=== PATIENT | female | born 1960 | race Caucasian/White ===

== ENCOUNTER 2019-08-03 15:24 | Emergency (ER) | payer MEDICAID ==
[~2019-08-03] VITALS: Ht 157.5 cm; Wt 90.9 kg
[~2019-08-03 15:24] MED LIST: AMLO10TA PO; ASPI81TA52 PO; ATOR40TA71 PO; BUSP10TA10 PO; DEXT15DR7 EACHEYE; DIVA500T9 PO; GABA-532 PO; LISI40TA4 PO; LURA40TA3 PO; MECL-111 PO; METO25TA6 PO; MONT10TA24 PO; NITR0.4T48 SL; ONDA4TAB12 PO; OXYC10TA47 PO; PANT-47 PO; SERT50TA PO; TEMA15CA5 PO; WARF10TA50 PO
[2019-08-03 16:28] VITALS: BP 134/67
[2019-08-03] MEDS ORDERED: dexamethasone sod phosphate 10mg/ml inj IM STA (16:32)
[2019-08-03] MEDS ORDERED: NAPR-56 PO (16:43)
[2019-08-03] MEDS ORDERED: TRAM50TA2 PO (16:43)
== END 2019-08-03 17:07 | disposition home or self-care (01) ==
LOC: ER 15:25
DX: M54.16 Radiculopathy, lumbar region (principal); I11.0 Hypertensive heart disease with heart failure; I50.9 Heart failure, unspecified; G89.29 Other chronic pain; F31.9 Bipolar disorder, unspecified; Z86.73 Personal history of transient ischemic attack (TIA), and cerebral infarction without residual deficits; Z90.49 Acquired absence of other specified parts of digestive tract; Z90.710 Acquired absence of both cervix and uterus; Z98.890 Other specified postprocedural states; Z88.8 Allergy status to other drugs, medicaments and biological substances; Z88.6 Allergy status to analgesic agent; Z88.1 Allergy status to other antibiotic agents; Z79.82 Long term (current) use of aspirin; Z79.01 Long term (current) use of anticoagulants; Z79.899 Other long term (current) drug therapy
CPT/HCPCS: 96372; 99284; J1100

== ENCOUNTER 2020-09-27 07:56 | Day surgery (SDC) | payer MEDICAID ==
[2020-09-21 12:13] LABS: BASOPHILS # (AUTO) 0.1 X10'3 (0-0.2); EOSINOPHILS # (AUTO) 0.2 X10'3 (0-0.9); EOSINOPHILS % (AUTO) 1.8 % (0-6); LYMPHOCYTES # (AUTO) 3.3 X10'3 (1.1-4.8); LYMPHOCYTES % (AUTO) 38.8 % (21-51); MEAN CORPUSCULAR HEMOGLOBIN 28.6 PG (27.0-31.0); MEAN CORPUSCULAR HGB CONC 33.3 g/dL (33.0-36.5); MEAN CORPUSCULAR VOLUME 85.8 FL (78-98); MEAN PLATELET VOLUME 9.2 FL (7.4-10.4); MONOCYTES # (AUTO) 0.7 X10'3 (0-0.9); MONOCYTES % (AUTO) 7.9 % (2-12); NEUTROPHILS # (AUTO) 4.2 X10'3 (1.8-7.7); NEUTROPHILS % (AUTO) 50.5 % (42-75); PRE OP HEMATOCRIT 40.7 % (35.0-45.0); PRE OP HEMOGLOBIN 13.6 g/dL (12.0-16.0); PRE OP PLATELET COUNT 257 X10'3 (140-440); RED BLOOD COUNT 4.75 X10'6 (4.20-5.60); RED CELL DISTRIBUTION WIDTH 14.5 % (11.5-14.5)
[2020-09-21 12:34] LABS: ALBUMIN 3.6 G/DL (3.4-5.0); ALBUMIN/GLOBULIN RATIO 0.9 (1.1-1.5); ALKALINE PHOSPHATASE 130 IU/L (46-116); BLOOD UREA NITROGEN 14 MG/DL (7-18); BUN/CREATININE RATIO 15.2 (6.6-38.0); CALCIUM 9.4 MG/DL (8.5-10.1); CHLORIDE 106 MMOL/L (99-107); CREATININE 0.92 MG/DL (0.40-0.90); PRE OP ALT 35 U/L (30-65); PRE OP ANION GAP 8 (8-16); PRE OP AST 13 U/L (10-37); PRE OP BILIRUB, TOTAL 0.4 MG/DL (0.0-1.0); PRE OP GLUCOSE 94 MG/DL (70-104); PRE OP POTASSIUM 4.1 MMOL/L (3.4-5.1); PRE OP SODIUM 141 MMOL/L (135-145); TOTAL CARBON DIOXIDE 27.4 MMOL/L (24-32); TOTAL PROTEIN 7.7 G/DL (6.4-8.2); eGFR 62 ML/MIN
[2020-09-27] VITALS (9 sets, daily range): BP systolic 108–139; BP diastolic 66–88
[~2020-09-27] VITALS: Ht 154.9 cm; Wt 101.5 kg
[~2020-09-27 07:56] MED LIST changes: -AMLO10TA PO; -ASPI81TA52 PO; +ATOR10TA70 PO; -ATOR40TA71 PO; -BUSP10TA10 PO; +CARV-49 PO; -DEXT15DR7 EACHEYE; +DOCUMENT DATE & TIME OF BETA-BLOCKER PO ONE; -GABA-532 PO; +HYDR50TA65 PO; +LIDOcaine 0.5% (5mg/ml) 50ml vial ONE; -LURA40TA3 PO; -MECL-111 PO; -METO25TA6 PO; -MONT10TA24 PO; +MONT10TA26 PO; -NITR0.4T48 SL; -ONDA4TAB12 PO; -OXYC10TA47 PO; -SERT50TA PO; -TEMA15CA5 PO; +TRAZ150T78 PO; +VENL150C58 PO; -WARF10TA50 PO; +albuterol 2.5 MG/3 ML nebule NEB ONE; +ceFAZolin 2gm in dextrose, iso 50 ML IV ONE; +famotidine 20mg tablet PO ONE; +ringers solution, lacted 1,000 ML IV SCH
[2020-09-27] MEDS ORDERED: ringers solution, lacted 1,000 ML IV SCH (09:30)
[2020-09-27] MEDS ORDERED: labetalol 20mg/4ml (5mg/ml) syringe IV PRN (09:30)
[2020-09-27] MEDS ORDERED: morphine 4 MG/ML inj SYRINge IV PRN (09:30)
[2020-09-27] MEDS ORDERED: fentaNYL/PF 50MCG/1 ML 2ML syringe IV PRN ×2 (09:30)
[2020-09-27] MEDS ORDERED: ondansetron/PF 4mg/2ml inj IV PRN (09:30)
[2020-09-27] MEDS ORDERED: morphine 2 MG/ML inj. syringe IV PRN (09:30)
[2020-09-27] MEDS ORDERED: hydrALAZINE 20mg/ml inj. IV PRN (09:30)
[2020-09-27] MEDS ORDERED: BUPIVAcaine/PF 2.5mg/ml (0.25%) 10ml vial ONE (10:07)
[2020-09-27] MEDS ORDERED: midazolam 2 mg/2 ml injection ONE (12:20)
[2020-09-27] MEDS ORDERED: fentaNYL/PF 50MCG/1 ML 2ML syringe ONE (12:27)
--- NOTE | 2020-09-27 12:45 | NUR ---
Received from OR via [facility], accompanied by Anesthesiologist DR HUFFMAN and report given by Anesthesiologist. PT DROWSY, DENIES PAIN, LEFT HAND/WRIST W/BIAS WRAP COVERING INCISION/DRSG, CDI, FINGERS PWD, ASSESSMENT DIRECTOR 2-3 SECONDS. Addendum: 09/27/20 at 1330 by Naomie Rolle RN Amended: Links added.
--- NOTE | 2020-09-27 14:15 | NUR ---
PT UP AND ABLE TO AMBULATE SAFELY, D/C INSTRUCTIONS GIVEN AND GONE OVER W/PT WHO VERBALIZED UNDERSTANDING, PT D/CD TO HOME VIA W/C TO PRIVATE VEHICLE W/O INCIDENT. Addendum: 09/27/20 at 1424 by Naomie Rolle RN Amended: Links added.
== END 2020-09-27 14:15 | disposition home or self-care (01) ==
LOC: PAS 07:56 → EDSTATUS 15:00
PROVIDERS: ATTEND Orthopaedic Surgery Hand Surgery
DX: M65.312 Trigger thumb, left thumb (principal); M65.322 Trigger finger, left index finger; M65.332 Trigger finger, left middle finger; M65.342 Trigger finger, left ring finger; M65.352 Trigger finger, left little finger; Z20.828 Contact with and (suspected) exposure to other viral communicable diseases; J44.9 Chronic obstructive pulmonary disease, unspecified; G47.30 Sleep apnea, unspecified; F31.9 Bipolar disorder, unspecified; F41.0 Panic disorder [episodic paroxysmal anxiety]; I10 Essential (primary) hypertension; M17.11 Unilateral primary osteoarthritis, right knee; G89.4 Chronic pain syndrome; E66.9 Obesity, unspecified; Z68.41 Body mass index [BMI] 40.0-44.9, adult; F17.210 Nicotine dependence, cigarettes, uncomplicated; Z79.899 Other long term (current) drug therapy; Z90.710 Acquired absence of both cervix and uterus; Z90.49 Acquired absence of other specified parts of digestive tract; Z98.890 Other specified postprocedural states; Z88.8 Allergy status to other drugs, medicaments and biological substances; Z88.1 Allergy status to other antibiotic agents; Z86.73 Personal history of transient ischemic attack (TIA), and cerebral infarction without residual deficits; Z82.49 Family history of ischemic heart disease and other diseases of the circulatory system; Z80.3 Family history of malignant neoplasm of breast
CPT/HCPCS: 26055; 36415; 80053; 82948; 85025; 87635; 93005; J2001; J2250; J3010; J3490; A4215; A6449; J7120

== ENCOUNTER 2021-04-28 11:52 | Emergency (ER) | payer MEDICAID ==
[~2021-04-28] VITALS: Ht 152.4 cm; Wt 99.9 kg
[~2021-04-28 11:52] MED LIST changes: -DOCUMENT DATE & TIME OF BETA-BLOCKER PO ONE; -LIDOcaine 0.5% (5mg/ml) 50ml vial ONE; +LISI40TA13 PO; -LISI40TA4 PO; -MONT10TA26 PO; +MONT10TA32 PO; -albuterol 2.5 MG/3 ML nebule NEB ONE; -ceFAZolin 2gm in dextrose, iso 50 ML IV ONE; -famotidine 20mg tablet PO ONE; -ringers solution, lacted 1,000 ML IV SCH
[2021-04-28] MEDS ORDERED: HYDROcodone/acetaminophen 5mg/325mg tablet PO ONE (13:25)
[2021-04-28] MEDS ORDERED: LIDOcaine 5% patch TP ONE (13:25)
[2021-04-28] MEDS ORDERED: ketorolac trometh inj. 60 MG/2 ML VIAL IM ONE (13:25)
[2021-04-28] MEDS ORDERED: acetaminophen 325mg tablet PO ONE ×2 (13:25→13:40)
--- NOTE | 2021-04-28 13:36 | NUR ---
Patient states she is not allergic to tylenol
[2021-04-28] MEDS ORDERED: MELO-100 PO (14:08)
[2021-04-28] MEDS ORDERED: LIDO700A32 TOP (14:08)
[2021-04-28] MEDS ORDERED: HYDR-3965 PO (14:08)
[2021-04-28 14:43] VITALS: BP 148/80
== END 2021-04-28 14:47 | disposition home or self-care (01) ==
LOC: ER 11:52
DX: S09.90XA Unspecified injury of head, initial encounter (principal); R07.81 Pleurodynia; I11.0 Hypertensive heart disease with heart failure; I50.9 Heart failure, unspecified; G89.29 Other chronic pain; F31.9 Bipolar disorder, unspecified; Z86.73 Personal history of transient ischemic attack (TIA), and cerebral infarction without residual deficits; Z85.9 Personal history of malignant neoplasm, unspecified; Z90.49 Acquired absence of other specified parts of digestive tract; Z90.710 Acquired absence of both cervix and uterus; Z98.890 Other specified postprocedural states; Z88.8 Allergy status to other drugs, medicaments and biological substances; Z88.1 Allergy status to other antibiotic agents; Z79.899 Other long term (current) drug therapy; W19.XXXA Unspecified fall, initial encounter; Y93.89 Activity, other specified; Y92.89 Other specified places as the place of occurrence of the external cause; Y99.8 Other external cause status
CPT/HCPCS: 70450; 71046; 96372; 99284; J1885

== ENCOUNTER 2023-11-06 12:42 | Emergency (ER) | payer MEDICAID ==
[~2023-11-06] VITALS: Ht 154.9 cm; Wt 64.1 kg
[~2023-11-06 12:42] MED LIST changes: +LIDO700A32 TOP; +MELO-100 PO; +MONT-40 PO; -MONT10TA32 PO
[2023-11-06 14:14] VITALS: BP 171/66; PULSE 94; RESP 16; TEMP 98.2; O2SAT 98
[2023-11-06] MEDS ORDERED: CYCL-1 PO (14:24)
[2023-11-06] MEDS ORDERED: NAPR-56 PO (14:24)
== END 2023-11-06 14:41 | disposition home or self-care (01) ==
LOC: ER 12:43
DX: S22.42XA Multiple fractures of ribs, left side, initial encounter for closed fracture (principal); W18.39XA Other fall on same level, initial encounter; Y93.89 Activity, other specified; Y92.89 Other specified places as the place of occurrence of the external cause; Y99.8 Other external cause status
CPT/HCPCS: 71100; 99283

== ENCOUNTER 2023-11-10 10:35 | Emergency (ER) | payer MEDICAID ==
[~2023-11-10] VITALS: Ht 154.9 cm; Wt 61.4 kg
[~2023-11-10 10:35] MED LIST changes: +CYCL-1 PO; +NAPR-56 PO
[2023-11-10 11:22] VITALS: BP 176/89; TEMP 99.6
[2023-11-10] MEDS ORDERED: ketorolac trometh. 30mg/ml inj. IM ONE (15:30)
[2023-11-10 15:47] VITALS: PULSE 82; RESP 20; O2SAT 98
== END 2023-11-10 15:49 | disposition home or self-care (01) ==
LOC: ER 10:35
DX: R07.9 Chest pain, unspecified (principal); I11.0 Hypertensive heart disease with heart failure; G89.29 Other chronic pain; M54.9 Dorsalgia, unspecified; F31.9 Bipolar disorder, unspecified
CPT/HCPCS: 71045; 96372; 99284; J1885